=== PATIENT | female | born 1985 | race Caucasian/White ===

== ENCOUNTER 2021-08-24 07:05 | Emergency (ER) | payer SELFPAY ==
[2021-08-24] VITALS (8 sets, daily range): BP systolic 109–132; BP diastolic 52–87; PULSE 61–80; RESP 16–18; TEMP 36.6; O2SAT 96–100; BMI 36.7
--- NOTE | 2021-08-24 07:30 | CT_ITS ---
PROCEDURE: CT ABDOMEN PELVIS W CON CLINICAL INDICATION: abdomen pain Midline abdominal pain COMPARISON: CT CT ANGIO CHEST from 11/06/2019 TECHNIQUE: IV Contrast: 75ML Isovue 370 Oral Contrast None Axial images obtained with sagittal and coronal reformats. All CT scans at the facility use one or more dose reduction, viz: automated exposure control, ma/kV adjustment per patient size (including targeted exams where dose is matched to indication, i.e. head), or iterative reconstruction technique. FINDINGS: LOWER THORAX: No acute finding ABDOMEN & PELVIS: The liver, spleen, adrenal glands, and pancreas have an unremarkable appearance. No renal or ureteral calculi. No hydronephrosis. There is a 1.7 x 1.2 x 1.6 cm left renal nodule along the upper pole of the left kidney laterally suspicious for neoplasm. No intestinal obstruction or free air. No evidence of appendicitis. There is a mild amount of retained colonic feces. Bowel gas pattern is nonspecific. No pelvic mass or abnormal pelvic fluid collection. No acute bony findings. IMPRESSION: 1. 1.7 cm solid appearing left renal nodule suspicious for neoplasm. Nonemergent renal ultrasound suggested initially for further evaluation to assure that the nodule is solid. 2. No acute abdominal or pelvic findings. Dictated by: Markell Lemus MD 08/24/2021 08:29 Markell Lemus MD in [place] 08/24/2021 08:29
[2021-08-24 07:37] LABS: Microscopic, Urine URINE MICROSCOPIC (MICROSCOPIC)
[2021-08-24 07:39] LABS: Appearance,Urine CLEAR (Clear); Bilirubin,Urine Negative (Negative); Blood, Urine Negative (Negative); Color,Urine YELLOW (Yellow); Glucose,Urine (UA) Negative (Negative); Ketones,Urine Negative (Negative); Leukocyte Esterase,Urine TRACE (Negative); Nitrate,Urine Negative (Negative); Protein,Urine Negative (Negative); Urobilinogen,Urine 0.2 EU/dl (0.2)
[2021-08-24 07:40] LABS: Urine Pregnancy, HCG Qual. Negative (Negative)
[2021-08-24 08:13] LABS: Basophils # 0.1 K/mm3 (0-0.2); Basophils % 0.6 % (0.1-2.0); Eosinophils # 0.2 K/mm3 (0.0-0.4); Eosinophils % 1.8 % (0.1-12.0); Hematocrit 48.9 % (37.0-47.0); Hemoglobin 16.3 g/dL (12.2-16.2); Lymphocytes # 2.7 K/mm3 (0.7-4.5); Lymphocytes % 27.5 % (10-50); Mean Corpuscular HGB Conc 33.4 g/dL (31.8-35.4); Mean Corpuscular Hemoglobin 31.9 pg (27.0-31.2); Mean Corpuscular Volume 95.5 fl (81-99); Mean Platelet Volume 8.6 fl (7.4-10.4); Monocytes # 0.5 K/mm3 (0.1-1.0); Monocytes % 4.6 % (1.7-9.3); Neutrophils # 6.5 K/mm3 (1.8-7.8); Neutrophils % 65.4 % (37.0-80.0); Platelet Count 325 K/mm3 (142-424); Red Blood Count 5.12 M/mm3 (4.20-5.40); Red Cell Distribution Width 13.2 % (11.5-17.5); White Blood Count 9.9 K/mm3 (4.8-10.8)
--- NOTE | 2021-08-24 08:16 | HMH.EDGENADL ---
ED Disposition Clinical Impression: Nodule of kidney Abdominal pain Qualifiers: Abdominal location: lower abdomen, unspecified Qualified Code(s): R10.30 - Lower abdominal pain, unspecified Disposition: Home, Self-Care Condition on Discharge: Good Instructions: DI for Acute Abdominal Pain Additional Instructions: Follow-up with Dr. Stein in the office for further evaluation of nodule on your left kidney, you need an outpatient MRI with and without contrast. MiraLAX as prescribed. Additional instructions for ABDOMINAL PAIN: See your physician as soon as possible for further evaluation. Return immediately if worsening abdominal pain, vomiting, shortness of breath, fever, vomiting of blood or abdominal distention. Prescriptions: polyethylene glycoL 3350 [Miralax 17gm Packet] 17 gm PO DAILY #5 packet Transmission Status: Pending to [id number] Referrals: Kenyon Stein MD [Primary Care Provider] - Forms: Work/School Release - Critical Care Critical Care Time: No Attestation: On 08/24/21, the high probability of a clinically significant, sudden or life threatening deterioration of the following system(s) required my full and direct attention, intervention and personal management. The time I documented below is in addition to time spent performing reported procedures but includes the following listed in this critical care notation. Medical Decision Making - Juliocesar Inquiry Pt receiving controlled substance: No Vital Signs: 08/24/21 07:07 08/24/21 07:30 Temperature 97.8 F Temperature Source Oral Pulse Rate 76 Pulse Rate [Left Radial] 80 Respiratory Rate 18 Blood Pressure 129/69 Blood Pressure [Right Arm] 132/87 Blood Pressure Mean 92 Blood Pressure Mean [Right Arm] 102 Blood Pressure Source [Right Arm] Automatic Cuff Blood Pressure Position [Right Arm] Sitting 02 Sat by Pulse Oximetry 97 96 Oxygen Delivery Method Room Air - Lab Data Lab Results 08/24/21 07:10: Urine Color Yellow, Urine Appearance Clear, Urine pH 6.0, Ur Specific [place] 1.020, Urine Protein Negative, Urine Glucose (UA) Negative, Urine Ketones Negative, Urine Blood Negative, Urine Nitrate Negative, Urine Bilirubin Negative, Urine Urobilinogen 0.2, Ur Leukocyte Esterase Trace, Urine RBC None, Urine WBC 3-5, Ur Squamous Epith Cells 3-5, Urine Bacteria None 08/24/21 07:10: Urine HCG, Qual Negative 08/24/21 07:22: WBC 9.9, RBC 5.12, Hgb 16.3 H, Hct 48.9 H, MCV 95.5, MCH 31.9 H, MCHC 33.4, RDW 13.2, Plt Count 325, MPV 8.6, Neut % (Auto) 65.4, Lymph % (Auto) 27.5, Smith % (Auto) 4.6, Eos % (Auto) 1.8, Baso % (Auto) 0.6, Neut # (Auto) 6.5, Lymph # (Auto) 2.7, Smith # (Auto) 0.5, Eos # (Auto) 0.2, Baso # (Auto) 0.1 08/24/21 07:22: Sodium 141, Potassium 3.9, Chloride 107, Carbon Dioxide 27, Anion Gap 10.9, BUN 9, Creatinine 0.50 L, Estimated Creat Clear 234, Estimated GFR 138, Est GFR ( Amer) 167, Glucose 133 H, Calcium 9.0, Total Bilirubin 0.7, AST 25, ALT 24, Alkaline Phosphatase 59, Total Protein 7.4, Albumin 4.2, Globulin 3.2, Albumin/Globulin Ratio 1.3, Amylase 64 08/24/21 07:22: Lipase 59 Result diagrams: 08/24/21 07:22 08/24/21 07:22 Orders (Tests/Meds): ED MEDICATIONS Discontinued Medications Generic Name Dose Route Start Last Admin Trade Name Freq PRN Reason Stop Dose Admin Sodium Chloride 1,000 mls @ 999 mls/hr 08/24/21 07:45 08/24/21 07:44 Sod Chlor 0.9% 1000ml Bag IV 08/24/21 08:45 999 mls/hr .Q1H1M RENNY Administration Iopamidol 75 ml 08/24/21 08:04 08/24/21 08:06 Iopamidol-370 (76%);100ml Bottle IV 08/24/21 08:05 75 ml ONCE ONE Administration Iopamidol 75 ml 08/24/21 08:05 Iopamidol-370 (76%);100ml Bottle IV 08/24/21 08:06 ONCE ONE Ketorolac Tromethamine 30 mg 08/24/21 07:31 08/24/21 07:44 Ketorolac 30mg/Ml Vial IV 08/24/21 07:32 30 mg ONCE ONE Administration Sodium Chloride 10 ml 08/24/21 08:04 08/24/21 08:05 Sodium Chloride 0.9%
[2021-08-24 08:21] LABS: Alanine Aminotransferase 24 U/L (12-78); Albumin Level 4.2 g/dl (3.5-5.0); Albumin/Globulin Ratio 1.3 (1.1-1.8); Alkaline Phosphatase 59 U/L (38-126); Amylase 64 U/L (30-110); Anion Gap 10.9 mEq/L (5-15); Aspartate Amino Transferase 25 U/L (14-36); Bilirubin,Total 0.7 mg/dl (0.2-1.3); Blood Urea Nitrogen 9 mg/dl (7-17); Carbon Dioxide 27 mmol/L (22.0-30.0); Chloride 107 mmol/L (98-107); Creatinine Clearance Estimated 234 mL/min (50-200); Estimated Glomerular Filt Rate 138 ml/min (>60); GFR (African American) 167 ML/MIN (>60); Globulin 3.2 g/dL (1.3-3.2); Glucose 133 mg/dl (74-100); Lipase 59 U/L (23-300); Potassium 3.9 mmoL/L (3.5-5.1); Sodium 141 mmol/L (136-145); Total Protein,Serum 7.4 g/dl (6.3-8.2)
--- NOTE | 2021-08-24 08:33 | US_ITS ---
PROCEDURE: US KIDNEY CLINICAL INDICATION: left kidney mass on CT COMPARISON: CT CT ABDOMEN PELVIS W CON from 08/24/2021 FINDINGS: The right kidney is [id number]. No hydronephrosis, cortical thinning, or renal mass or perinephric fluid collection is evident. The left kidney is [id number]. The upper pole is not well evaluated on this exam secondary to renal position and patient's body habitus. The renal mass is not confirmed on ultrasound however it is present on CT therefore, nonemergent MRI of the kidneys without and with gadolinium enhancement is suggested for further evaluation. IMPRESSION: The upper pole of the left kidney is not adequately visualized by ultrasound. Therefore, nonemergent MRI suggested for further evaluation. No hydronephrosis. Dictated by: Markell Lemus MD 08/24/2021 10:38 Marekll Lemus MD in [place] 08/24/2021 10:38
== END 2021-08-24 11:15 | disposition home or self-care (01) ==
PROVIDERS: Emergency Provider Emergency Medicine; PCP Emergency Medicine
DX: N28.89 Other specified disorders of kidney and ureter (principal); F17.210 Nicotine dependence, cigarettes, uncomplicated
CPT/HCPCS: 74177; 76770; 80053; 81001; 81025; 82150; 83690; 85025; 96365; 96375; 99283; Q9967

== ENCOUNTER → 2021-09-14 08:58 | Outpatient (CLI) | payer SELFPAY ==
--- NOTE | 2021-09-14 09:02 | MR_ITS ---
PROCEDURE: MR ABDOMEN WO/W CON CLINICAL INDICATION: renal mass seen on CT Left renal mass evaluation COMPARISON: US US KIDNEY from 08/24/[address] ABDOMEN PELVIS W CON from 08/24/2021 TECHNIQUE: Routine multiplanar multi echo sequences are performed without and with gadolinium enhancement. MRCP images also performed. FINDINGS: The spleen, adrenal glands, pancreas, and right kidney have an unremarkable appearance. There has been a prior cholecystectomy. MRCP images are obtained showing no evidence of biliary dilatation. There is considerable motion artifact. The pancreatic duct is not well demonstrated. There is a 2 cm lesion involving the right hepatic lobe peripherally segment 6. This shows only minimal T2 hyperintensity and is best demonstrated on the post enhanced images possibly due to an atypical hemangioma showing some minimal heterogeneous enhancement which is similar to arterial phase images on all sequences. There is a 14 by 14 by 14 mm nodule along the upper pole of the left kidney laterally slightly exophytic. This shows some minimal heterogeneous enhancement centrally also with some mild peripheral enhancement. These do not have cystic properties. This is slightly hypointense on T1 and isointense on T2 suspicious for a small renal neoplasm. No adenopathy. No renal vein enlargement. IMPRESSION: 1. 14 x 14 mm mass of the left kidney superiorly. This does not have cystic properties and is suspicious for a renal neoplasm. 2. 2 cm peripheral lesion of segment 6 of the liver which may represent an atypical hemangioma. Follow-up is however suggested to exclude the possibility of a metastatic lesion. Dictated by: Markell Lemus MD 09/17/2021 08:49 Markell Lemus MD in [place] 09/17/2021 08:49
== END ==
PROVIDERS: PCP Emergency Medicine; Visit Provider Emergency Medicine
DX: N28.89 Other specified disorders of kidney and ureter (principal)
CPT/HCPCS: 74183; A9576

== ENCOUNTER 2022-08-02 13:36 | Emergency (ER) | payer OTHER, SELFPAY ==
[2022-08-02 13:50] VITALS: BP 139/91; PULSE 109; RESP 19; TEMP 39.4; O2SAT 97; BMI 34.5
--- NOTE | 2022-08-02 14:26 | EXP.UTC ---
Discharge Plan Disposition Patient Disposition: Home, Self-Care Condition: Good Prescriptions Prescriptions: No Action No Known Home Medications Referrals Follow up/Referrals: Kenyon Stein MD [Primary Care Provider] - See instructions Activity Restrictions/Add. Instructions Additional Instructions/Restrictions: *Monitor Temp, Over the counter Motrin or Tylenol as directed/as needed Tylenol every 4 hours and Motrin every 6 hours (as long as your family doctor has told you that you can take it) for fever or pain. and straight to ER if unable to lower temp less than 101.0 after medication given *Warm salt water gargles may help to soothe the throat *Throat Lozenges? *Warm fluids like tea with honey may help to soothe the throat? *Sleep elevated *Humidifier/Vaporizer Follow up IMMEDIATELY for new or worsening symptoms or no Noticeable improvement over the next 48-72 hours. 911 for difficulty breathing or swallowing You were tested for today for COVID19 your test result should be back in the next 24-48 hours, you may check your results on the [facility] my Health Portal Make sure to take your Vitamins Vit. C Vit D and Zinc if you can take them Clinical Impressions Clinical Impression: Exposure to COVID-19 virus, Viral syndrome Stand Alone Forms Stand Alone Forms: Work/School Release Discharge ED Provider: Anita Calvert [facility] HPI General Stated complaint: Sore throat, fever, cough, weakness, BA Mode of Arrival: Ambulatory Source of Information: Patient Limitations: No Limitations Time Seen by Provider: 08/02/22 14:27 Description of Symptoms (Recalled from Triage Doc. by RN): PATIENT C/O FEVER, CHILLS, AND HEADACHE SINCE YESTERDAY. RECENTLY EXPOSED TO COVID HEENT Symptoms (Recalled from RN notes): Yes Resp Symptoms (Recalled from RN notes): No Skin Symptoms (Recalled from RN notes): No MS Symptoms (Recalled from RN notes): No Functional Status (Recalled from RN notes): WNL History of Present Illness Provider Complaint: Patient states that she was recently exposed to COVID by mother States that now she is having body aches, chills, fever and headache Thinks she may have COVID now too Related Data Home Medications Medication Instructions Recorded Confirmed No Known Home Medications 08/28/21 10/27/21 Allergies Allergy/AdvReac Type Severity Reaction Status Date / Time No Known Allergies Allergy Verified 10/27/21 11:10 Worker's Comp Is this a Worker's Comp case?: No PFSH PFSH Medical History (Updated 08/02/22 @ 14:30 by Anita Calvert APRN) No significant past medical history Social History (Updated 08/02/22 @ 14:15 by Shelley Trujillo RN) Smoking Status: Current every day smoker tobacco type: cigarettes packs per day: 1 alcohol intake: never substance use type: denies use current occupational status: unemployed Travel in the last 8 weeks: None household members: family housing: house ROS Obtained: Yes All systems reviewed & no additional complaints except as documented and Yes Systems reviewed as appropriate & no additional complaints except as documented Constitutional Constitutional: Reports system reviewed and no additional complaints, except as documented, Reports as per HPI, Reports body ache, Reports chills, Reports fever(s) and Reports headache(s) ENT Ears, Nose, Mouth, and Throat: Reports system reviewed and no additional complaints, except as documented, Reports as per HPI and Reports headache(s) Cardiovascular Cardiovascular: Reports system reviewed and no additional complaints, except as documented and Reports as per HPI Respiratory Respiratory: Reports system reviewed and no additional complaints, except as documented and Reports as per HPI Neurologic Neurologic: Reports headache(s) Physical Exam General General appearance: alert and in no apparent distress ENT ENT exam: Present normal exam, normal oropharynx and mucous membran
[2022-08-02 14:58] VITALS: BP 139/91; PULSE 109; RESP 19; TEMP 38.2; O2SAT 97
== END 2022-08-02 15:01 | disposition home or self-care (01) ==
PROVIDERS: Emergency Provider Nurse Practitioner; PCP Emergency Medicine
DX: U07.1 COVID-19 (principal)
CPT/HCPCS: 99212; C9803; G0463; U0003; U0005

== ENCOUNTER → 2022-12-17 13:21 | Outpatient (CLI) | payer OTHER, SELFPAY | PROVIDERS: PCP Emergency Medicine; Visit Provider Urology | DX: Z20.822 Contact with and (suspected) exposure to COVID-19 (principal) | CPT/HCPCS: C9803; U0003; U0005 ==

== ENCOUNTER 2023-07-03 07:07 | Emergency (ER) | payer OTHER, SELFPAY ==
[2023-07-03] VITALS (7 sets, daily range): BP systolic 115–159; BP diastolic 55–95; PULSE 62–84; RESP 17–19; TEMP 36.8; O2SAT 96–100; BMI 36.3
--- NOTE | 2023-07-03 07:26 | CT_ITS ---
FINAL REPORT CLINICAL HISTORY: Left flank/L abd pain; h/o RCC partial nephrectomy COMPARISON: 09/14/2021 FINDINGS: CT OF THE ABDOMEN AND PELVIS WITH CONTRAST Axial CT images of the abdomen and pelvis were obtained after the administration of IV contrast. Coronal and sagittal reformatted images were also obtained and reviewed. This study was performed with techniques to keep radiation doses as low as reasonably achievable (ALARA). Individualized dose reduction techniques using automated exposure control or adjustment of mA and/or kV according to the patient's size were employed. Abdomen: Mild bibasilar atelectasis is present.. The heart is normal in size. There is mild biliary ductal dilatation in this patient's status post cholecystectomy that may represent postoperative change. This is stable since the prior CT. The spleen is unremarkable. No adrenal mass is present. The pancreas has an unremarkable appearance. There are now postoperative changes present in the left upper pole of the kidney, with interval resection of a left upper pole mass since the prior CT. There is a less than 1 cm left renal cyst, slightly increased in appearance since the prior CT. The aorta is normal in caliber. There is no free fluid or adenopathy. No mass or abnormal fluid collection is seen. Pelvis: The appendix normal. The urinary bladder is unremarkable. No inflammatory process is seen. There is no evidence of mass or adenopathy. There is no evidence of bowel obstruction. IMPRESSION: No evidence of acute intra-abdominal process. Postoperative changes left kidney with interval resection of the left upper pole mass since the prior CT of 2020. Mild biliary ductal dilatation post cholecystectomy, stable Reviewed, Interpreted and Dictated by Fernando Figueredo III, MD Transcribed by Marley Case Authenticated and [facility]
--- NOTE | 2023-07-03 07:40 | CT_ITS ---
FINAL REPORT TECHNIQUE: After the administration of intravenous contrast, axial images through the chest were performed by computed tomography.This study was performed with techniques to keep radiation doses as low as reasonably achievable, (ALARA). Individualized dose reduction techniques using automated exposure control or adjustment of mA and/or kV according to the patient''s size were employed. CLINICAL HISTORY: recent RCC nephrectomy, left flank pain COMPARISON: 11/06/2019 FINDINGS: There are several borderline mediastinal nodes which are stable since the prior exam of 2019. There are also several borderline in size axillary nodes, also stable. Mild bibasilar atelectasis is present. The heart size is normal. There is no pericardial or pleural effusion. There is a calcified granuloma present in the right lung base. No new masses or nodules are identified.. IMPRESSION: No significant change since prior CT of 2019. No new masses or nodules are identified. Reviewed, Interpreted and Dictated by Fernando Figueredo III, MD Transcribed by Marley Case Authenticated and [facility]
[2023-07-03 07:41] LABS: Microscopic, Urine URINE MICROSCOPIC (MICROSCOPIC)
--- NOTE | 2023-07-03 07:42 | HMH.EDGENADL ---
Discharge Plan Disposition Patient Disposition: Home, Self-Care Condition: Fair Prescriptions Prescriptions: No Action No Known Home Medications Referrals Follow up/Referrals: Kenyon Stein MD [Primary Care Provider] - See instructions Activity Restrictions/Add. Instructions Additional Instructions/Restrictions: CT scan of your chest abdomen pelvis did not demonstrate any recurrence of disease or any other acute abnormalities noted. There is no radiographic or laboratory evidence of any condition that would cause her symptoms today. You may take Tylenol and ibuprofen as needed for your symptoms which may be musculoskeletal in nature. You do have some stable lymph nodes on the CT scan of your chest that are unchanged since 2019. You still need to follow-up with Dr. Soto and urology at . Please return with any worsening symptoms. Clinical Impressions Clinical Impression: Left flank pain, Left sided abdominal pain Stand Alone Forms Stand Alone Forms: Work/School Release Instructions Patient Instructions: DI for Acute Abdominal Pain Discharge ED Provider: Kaycee Amin General Adult HPI General Chief complaint: Abdominal Pain Stated complaint: left side and kidney pain Time Seen by Provider: 07/03/23 07:19 Mode of Arrival: Ambulatory Source of Information: Patient and Spouse Limitations: No Limitations Description of Symptoms (Recalled from ER Triage Doc. by RN): 37 yo F presents to ED with c/o left sided pain. ongoing for 2 weeks. pt reports having surgery on left kidney nov 2022. at with dr florez. pt reports no urinary symptoms, pain located on left side of abdomen radiating into back. 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 She denies any urinary symptoms including hematuria frequency burning urgency she does states she has had some pain with breathing. She denies any changes in bowel movements including constipation or diarrhea. Related Data Home Medications Medication Instructions Recorded Confirmed No Known Home Medications 07/03/23 07/03/23 Allergies Allergy/AdvReac Type Severity Reaction Status Date / Time No Known Allergies Allergy Verified 10/12/22 11:24 [facility] Disclaimer: The information contained in this section may have been updated after the patient was seen, as this information can be updated by other users. Medical History (Updated 07/03/23 @ 07:57 by Kaycee Amin MD) No significant past medical history Social History (Updated 08/02/22 @ 14:15 by Shelley Trujillo RN) Smoking Status: Current every day smoker tobacco type: cigarettes packs per day: 1 alcohol intake: never substance use type: denies use current occupational status: unemployed Travel in the last 8 weeks: None household members: family housing: house ROS Obtained: Yes All systems reviewed & no additional complaints except as documented Physical Exam General General appearance: alert Respiratory Respiratory exam: Present normal lung sounds bilaterally Cardiovascular Cardiovascular exam: Present regular rate; Absent tachycardia Abdominal Exam Abdominal exam: Present other (Left CVA tenderness, there is left upper and left lower quadrant tenderness and well-healed incisional scars in the anterior abdomen) Neurological Exam Neurological exam: Present alert and oriented X3 Medical Decision Making Juliocesar Inquiry Pt receiving controlled substance: No Vital Signs: 07/03/23 07:21 07/03/23 07:31 07/03/23 08:00 Temperature 98.2 F Temperature Shania
[2023-07-03 07:47] LABS: Basophils # 0.1 K/mm3 (0-0.2); Basophils % 0.8 % (0.1-2.0); Eosinophils # 0.1 K/mm3 (0.0-0.4); Eosinophils % 1.3 % (0.1-12.0); Hematocrit 48.2 % (37.0-47.0); Hemoglobin 15.1 g/dL (12.2-16.2); Lymphocytes # 2.3 K/mm3 (0.7-4.5); Lymphocytes % 24.9 % (10-50); Mean Corpuscular HGB Conc 31.4 g/dL (31.8-35.4); Mean Corpuscular Hemoglobin 29.3 pg (27.0-31.2); Mean Corpuscular Volume 93.4 fl (81-99); Mean Platelet Volume 8.3 fl (7.4-10.4); Monocytes # 0.4 K/mm3 (0.1-1.0); Monocytes % 4.6 % (1.7-9.3); Neutrophils # 6.4 K/mm3 (1.8-7.8); Neutrophils % 68.4 % (37.0-80.0); Platelet Count 358 K/mm3 (142-424); Red Blood Count 5.16 M/mm3 (4.20-5.40); Red Cell Distribution Width 13.2 % (11.5-17.5); White Blood Count 9.3 K/mm3 (4.8-10.8)
[2023-07-03 07:56] LABS: Appearance,Urine CLEAR (Clear); Bilirubin,Urine Negative (Negative); Blood, Urine TRACE-I (Negative); Color,Urine YELLOW (Yellow); Glucose,Urine (UA) Negative (Negative); Ketones,Urine Negative (Negative); Leukocyte Esterase,Urine TRACE (Negative); Nitrate,Urine Negative (Negative); Protein,Urine Negative (Negative); Urobilinogen,Urine 0.2 EU/dl (0.2)
[2023-07-03 07:57] LABS: Urine Pregnancy, HCG Qual. Negative (Negative)
[2023-07-03 08:04] LABS: Alanine Aminotransferase 31 U/L (12-78); Albumin Level 4.5 g/dl (3.5-5.0); Albumin/Globulin Ratio 1.4 (1.1-1.8); Alkaline Phosphatase 72 U/L (38-126); Anion Gap 11.8 mEq/L (5-15); Aspartate Amino Transferase 31 U/L (14-36); Bilirubin,Total 0.8 mg/dl (0.2-1.3); Blood Urea Nitrogen 12 mg/dl (7-17); Carbon Dioxide 30 mmol/L (22.0-30.0); Chloride 102 mmol/L (98-107); Creatinine Clearance Estimated 164 mL/min (50-200); Estimated Glomerular Filt Rate 93 ml/min (>60); GFR (African American) 113 ML/MIN (>60); Globulin 3.3 g/dL (1.3-3.2); Glucose 99 mg/dl (74-100); Lipase 49 U/L (23-300); Potassium 3.8 mmoL/L (3.5-5.1); Sodium 140 mmol/L (136-145); Total Protein,Serum 7.8 g/dl (6.3-8.2)
--- NOTE | 2023-07-03 08:07 | PC.NURSE ---
Radiology notified that test is negative
[2023-07-03 08:20] LABS: Bacteria,Urine Trace /lpf; RBC,Urine Occasional #/hpf (0-3); Squamous Epithelial Cell,Urine Occasional #/hpf (0-5)
--- NOTE | 2023-07-03 08:57 | PC.NURSE ---
pt back to room from CT
--- NOTE | 2023-07-03 10:00 | PC.NURSE ---
call made to rad for update on pt scan, radio antenna installer states they are locked .
--- NOTE | 2023-07-03 10:35 | PC.NURSE ---
Dr. Amin at bedside
== END 2023-07-03 10:48 | disposition home or self-care (01) ==
PROVIDERS: Emergency Provider Student in an Organized Health Care Education/Training Program; PCP Emergency Medicine
DX: R10.9 Unspecified abdominal pain (principal); M54.9 Dorsalgia, unspecified; C64.2 Malignant neoplasm of left kidney, except renal pelvis; F17.210 Nicotine dependence, cigarettes, uncomplicated
CPT/HCPCS: 71260; 74177; 80053; 81001; 81025; 83690; 85025; 96361; 96374; 96375; 99285; J2405; Q9967

== ENCOUNTER 2025-07-28 16:23 | Outpatient (CLI) | payer OTHER, SELFPAY ==
--- OUTSIDE RECORDS SUMMARY | 2025-07-28 16:27 | XMS_ITS | Encounter Summary ---
Author Organization Healthcare Address [address] [place] [address] Care Team Providers Care Comber Setter Name Role Phone Kenyon Stein MD Primary Care Provider [phone] Encounter Details Date Type Department Care Team (Late st Contact Info) Description 07/03/2023 Orders Only External Location [address] [place] [phone] Leonard Amin MD [address] [place] [phone] Social History Tobacco Use Types Packs/Day Years Used Date Smoking Tobacco: Every Day Cigarettes 1 18 Smokeless Tobacco: Never Alcohol Use Standard Drinks/Week Comments Never 0 (1 standard drink = 0.6 oz pur e alcohol) Comments No Sex and Gender Information Value Date Recorded Sex Assigned at Not on file Legal Sex Female 6:17 PM EDT Gender Identity Not on file Sexual Orientation Not on file documented as of this encounter Plan of Treatment Not on file documented as of this encounter Procedures Procedure Name Priority Date/Time Associated Diagnosis Comments CT ABDOMEN PELVIS W IV CONTRAST 07/03/2023 8:51 AM EDT documented in this encounter Results * CT Abdomen Pelvis w IV Contrast (07/03/2023 8:51 AM EDT) Anatomical Region Laterality Modality Abdomen, Pelvis Computed Tomogra phy 07/03/2023 8:51 AM EDT Leonard Amin MD IMG CT PROCEDURES Final Result documented in this encounter Visit Diagnoses Not on filedocumented in this encounter Additional Health Concerns Assessment Noted Time A fall risk assessment has been complete d for the patient 07/26/2022 12:31 PM EDT A Body Mass Index follow-up plan has been documented for the patient 01/09/2023 9:23 PM EST documented as of this encounter Care Teams Comber Setter Relationship Specialty Start Date End Date Kenyon Stein MD [address] [place] [address] PCP - General 04/07/21 documented as of this encounter
--- OUTSIDE RECORDS SUMMARY | 2025-07-28 16:27 | XMS_ITS | Clinical Summary ---
Author Organization Healthcare Address [address] [place] [address] Care Team Providers Care Steam Table Associate Name Role Phone Kenyon Stein MD Primary Care Provider + [phone] Allergies No known active allergies Medications methocarbamol (Robaxin) 500 MG tablet Take 1 tablet (500 mg total) by mouth 3 (three) times a day if needed for muscle spasms for up to 7 days. 21 tablet 12/20/2022 Active Active Problems Problem Noted Date Diagnosed Date Obesity (BMI 35.0-39.9 without comorbidity) 11/25 Overview (12/20/2022): S/p partial nephrectomy 12/19 Pathology pending Resolved Problems Problem Noted Date Diagnosed Date Resolved Date Renal mass 07/26/2022 12/20/2022 Overview (07/26/2022): Added automatically from request for surgery [id number] Family History Medical History Relation Name Comments Hypertension, benign Mother Anesthesia problems Neg Hx Malig Hyperthermia Neg Hx Relation Name Status Comments Mother Social History Tobacco Use Types Packs/Day Years Used Date Smoking Tobacco: Every Day Cigarettes 1 18 Smokeless Tobacco: Never Tobacco Cessation:Ready to Q uit: Not Asked; Counseling Given: Not Answered Alcohol Use Standard Drinks/Week Comments Never 0 (1 standard drink = 0.6 oz pur e alcohol) Comments No Sex and Gender Information Value Date Recorded Sex Assigned at Not on file Legal Sex Female 6:17 PM EDT Gender Identity Not on file Sexual Orientation Not on file Last Filed Vital Signs Vital Sign Reading Time Taken Comments Blood Pressure 120/82 01/03/2023 1:10 PM EST Pulse 83 01/03/2023 1:10 PM EST Temperature 36.4 C (97.6 F) 12/20/2022 12:03 PM EST Respiratory Rate 18 12/20/2022 12:03 PM EST Oxygen Saturation 93% 12/20/2022 12:03 PM EST Inhaled Oxygen Concentration - - Weight 97.6 kg (215 lb 1.6 oz) 01/03/2023 1:10 P M EST Height 162.6 cm (5' 4 ) 01/03/2023 1:10 PM EST Body Mass Index 36.92 01/03/2023 1:10 PM EST Plan of Treatment Health Maintenance Due Date Last Done Comments [facility]-HIV Screening 1983 [facility]-Hepatitis C Screening 1983 [facility]-Infant/Child/Adol SDOH Screenings 1983 [facility]-Varicella Vaccines (1 of 2 - 13+ 2-dose series) 1996 [facility]-DTaP,Tdap,and Td Vaccines (2 - Tdap) 02/23/1999 02/22/1999 [facility]- SDOH Screenings 2001 [facility]-Adult SDOH Screenings 2001 [facility]-Hepatitis B Vaccines (1 of 3 - 19+ 3-dose series) 2002 [facility]-Pap Smear 2004 HPV Vaccines (1 - 3-dose SCDM series) 2010 [facility]-Cervical Cancer Screening 2013 [facility]-HPV/Cotest 2013 [facility]-Depression Screening 07/26/2023 07/26/2022 [id number] Vaccine ( season) 2024 [facility]-Influenza Vaccine (#1) 2025 02/03/2020 [facility]-Zoster Vaccines (1 of 2) 2033 [facility]-Hepatitis A Vaccines Aged Out 06/13/2020 No longer eligible based on patient's age to complete this topic [facility]-Obesity Intervention Completed 023, 01/03/2023, 12/06/2022, Additional history exists [facility]-HIB Vaccines Aged Out No longer e ligible based on patient's age to complete this topic [facility]-IPV Vaccines Aged Out No longer e ligible based on patient's age to complete this topic [facility]-Pneumococcal Vaccine: Pediatrics (0 to 5 Years) and At-Risk Patients (6 to 49 Years) Aged Out No longer eligible based on patient's age to complete this topic [facility]-Rotavirus Vaccines Aged Out No lo nger eligible based on patient's age to complete this topic Insurance GENERIC [employer]IC [employer]ERCIAL Advance Directives * Full Code (Latest Code Status on File) Date Activated Date Inactivated Comments 12/19/2022 12:22 PM 12/20/2022 5:15 PM Question Answer Comments Patient has decision-making capacity? Yes Care Teams Steam Table Associate Relationship Specialty Start Date End Date Kenyon Stein MD [address] [place] [address] AKSHAT Vargas [id number] PCP - General 04/07/21
--- OUTSIDE RECORDS SUMMARY | 2025-07-28 16:27 | XMS_ITS | Encounter Summary ---
Author Organization Healthcare Address [address] [place] [address] Care Team Providers Care Vascular Radiologist Name Role Phone Kenyon Stein MD Primary Care Provider [phone] Encounter Details Date Type Department Care Team (Late st Contact Info) Description 07/03/2023 Orders Only External Location [address] [place] [phone] Leonard Amin MD [address] [place] [phone] Social History Tobacco Use Types Packs/Day [...] Name Priority Date/Time Associated Diagnosis Comments CT CHEST W IV CONTRAST 07/03/2023 8:51 AM EDT documented in this encounter Results * CT Chest w IV Contrast (07/03/2023 8:51 AM EDT) Anatomical Region Laterality Modality Chest Computed Tomogra phy 07/03/2023 8:51 AM EDT [...] documented as of this encounter Care Teams Vascular Radiologist Relationship Specialty Start Date End Date Kenyon Stein MD [address] [place] [address] PCP - General 04/07/21 documented as of this encounter
--- NOTE | 2025-07-28 16:41 | XR_ITS ---
PROCEDURE INFORMATION: Exam: XR Chest Exam date and time: 07/28/2025 4:44 PM Age: 39 years old Clinical indication: Cough; Additional info: Cough, chest congestion TECHNIQUE: Imaging protocol: Radiologic exam of the chest. Views: 2 views. COMPARISON: 1. CT CHEST W CON 07/03/2023 8:51 AM 2. CR XR CHEST 2V 11/06/2019 9:16 PM FINDINGS: Lungs: No consolidation. Pleural spaces: No significant pleural effusion. No pneumothorax. Heart/Mediastinum: No cardiomegaly. Bones/joints: No displaced fracture. Soft tissues: Unremarkable. Intraperitoneal space: Surgical clips within RIGHT upper quadrant. IMPRESSION: No definite acute cardiopulmonary disease. If symptoms persist, consider CT for further evaluation.
== END 2025-07-28 23:59 | disposition home or self-care (01) ==
LOC: RAD 16:26
PROVIDERS: PCP Nurse Practitioner; Visit Provider Student in an Organized Health Care Education/Training Program
DX: R05.9 Cough, unspecified (principal); R09.89 Other specified symptoms and signs involving the circulatory and respiratory systems
CPT/HCPCS: 71046